=== PATIENT | female | born 1975 | race African-American/Black ===

== ENCOUNTER 2016-07-14 20:58 | Emergency (ER) | payer MEDICAID, OTHER ==
[~2016-07-14] VITALS: Ht 167.6 cm; Wt 116.1 kg
[~2016-07-14 20:58] MED LIST: IBUPROFEN600 MG ORAL
[2016-07-14] MEDS ORDERED: NKM (21:10)
[2016-07-14 21:20] VITALS: BP 134/72
--- NOTE | 2016-07-14 21:26 | Emergency Room Report ---
History of Present Illness General Chief Complaint: Pain Source: Patient Present Illness HPI Patient presents with right shoulder pain. Denies any trauma. This is been well for 2 days. She states is worse when she reaches out in front of her. She 's never had this problem before. She also is complaining about intermittent sore throats when she is out at night. Denies any cough or chest pain. She denies fevers and chills. She denies any previous trauma. She is on her period right now denies any dysuria. 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 Period: july Reviewed Nursing Documentation: PMH: Agreed, PSxH: Agreed Nursing Documentation-PM Past Medical History: No Stated History Review of Systems All Other Systems: negative except mentioned in HPI Physical Exam Vital Signs Date Time Temp Pulse Resp B/P Pulse Ox O2 Delivery O2 Flow Rate FiO2 07/14/16 21:06 98.2 90 18 134/72 100 Room Air Sp02 EP Interpretation: reviewed, normal General Appearance: well appearing, no apparent distress, GCS 15 Head: normocephalic, atraumatic Eyes: bilateral eye PERRL, bilateral eye normal inspection ENT: hearing grossly normal, normal voice, moist mucus membranes Neck: full range of motion, supple Respiratory: no respiratory distress, speaking full sentences Musculoskeletal: back normal, digits/nails normal, gait/station normal, normal range of motion - see shoulder, other - Right shoulder tenderness to palpation. There is no crepitance. She has tenderness with passive range of motion. There is no elbow pain. Neurologic: alert, oriented x3, motor strength/tone normal, sensory intact Psychiatric: mood/affect normal Skin: no rash Medical Decision Making Diagnostic Impression: Primary Impression: Right shoulder pain Qualified Codes: M25.511 - Pain in right shoulder ER Course The patient presents with right shoulder pain and denies trauma. Differential includes strain, tendinitis, bursitis, rotator cuff tear. Xrays will be obtained. Patient given motrin. Xrays negative. Sling applied. Position good and neurovasc normal. Patient stable for outpatient observation and treatment. Other X-Ray Diagnostic Results Other X-Ray Diagnostic Results : X-Ray Ordered: R shoulder EP Interpretation: Yes Findings: no fractures, no dislocation, no soft tissue swelling Number of Views: 3 Last Vital Signs Date Time Temp Pulse Resp B/P Pulse Ox O2 Delivery O2 Flow Rate FiO2 07/14/16 22:19 98.2 87 18 134/72 100 Room Air Status: improved Disposition: HOME, SELF-CARE Condition: Improved Scripts Tramadol Hcl* (ULTRAM*) 50 Mg Tablet 50 MG ORAL Q6H Y for For Pain, #10 TAB 0 Refills Prov: Matheus Norton M.D. 07/14/16 Ibuprofen* (MOTRIN*) 600 Mg Tablet 600 MG ORAL Q6H Y for For Pain, #20 TAB Prov: Matheus Norton M.D. 07/14/16 Matheus Norton M.D. July 14, 2016 21:26
[2016-07-14] MEDS ORDERED: TRAMADOL HCL50 MG ORAL (22:15)
[2016-07-14] MEDS ORDERED: IBUPROFEN600 MG ORAL (22:15)
[2016-07-14 22:19] VITALS: BP 134/72
--- NOTE | 2016-07-15 10:17 | Diagnostic Imaging Report ---
Indications: Right shoulder pain Technique: 3 views of the right shoulder Findings: Comparison: None No fracture, dislocation, lytic destruction, periosteal reaction, surrounding soft tissue swelling, or other acute change is demonstrated. No deformity, alignment abnormality, arthritic change, soft tissue calcification, or other chronic change is demonstrated. IMPRESSION: Negative right shoulder series.
== END 2016-07-14 22:19 | disposition home or self-care (01) ==
LOC: EMR 21:25
DX: M25.511 Pain in right shoulder (principal); R07.0 Pain in throat
CPT/HCPCS: 29240; 99284